=== PATIENT | male | born 1950 | race Caucasian/White ===

== ENCOUNTER → 2019-03-21 08:13 | Outpatient (CLI) | payer MEDICARE, SELFPAY ==
--- NOTE | 2019-03-21 08:34 | CT_ITS ---
PROCEDURE: CT ANGIO CHEST CLINCIAL INDICATION: aneurysm of ascending aorta Ascending aortic aneurysm COMPARISON: No exams were available for comparison TECHNIQUE: IV Contrast: 70ML OPTIRAY 350 Axial images obtained with sagittal and coronal reformats. All CT scans at the facility use one or more dose reduction, viz: automated exposure control, ma/kV adjustment per patient size (including targeted exams where dose is matched to indication, i.e. head), or iterative reconstruction technique. FINDINGS: 1 cm left thyroid nodule posteriorly. There is mild prominence of the ascending aorta measuring up to 4.1 cm in maximum diameter. Coronary artery calcifications are present. No evidence of aortic dissection. Proximal descending thoracic aorta measures approximately 3.7 cm. No evidence of central pulmonary embolus. Normal heart size. No mediastinal or hilar mass or adenopathy. Calcified granuloma is present in the right middle lobe There are diffuse degenerative changes of the thoracic spine with ankylosis of the thoracic spine. Images were also obtained through the abdomen and into the upper pelvis. Atheromatous changes involve the aortoiliac vessels with no evidence of aneurysm or significant stenosis. There is mild thickening of the distal esophagus. IMPRESSION: Mild dilatation of the ascending aorta at 4.1 cm. Previous images are not available for comparison performed at an outside institution but was reported to be stable at 4.2 cm. Dictated by: Sherif Matos MD 03/22/2019 13:26 Electronically signed by Sherif Matos MD in [place] 03/22/2019 13:26
[2019-03-21 08:44] LABS: Anion Gap 12.7 mEq/L (5-15); Blood Urea Nitrogen 31 mg/dL (7-18); Calcium 8.6 mg/dL (8.5-10.1); Carbon Dioxide 26 mmol/L (21.0-32.0); Chloride 104 mmol/L (98-107); Creatinine,Serum 1.67 mg/dL (0.70-1.30); Estimated Glomerular Filt Rate 41 ml/min (>60); GFR (African American) 50 ML/MIN (>60); Glucose 109 mg/dL (74-106); Potassium 4.7 mmoL/L (3.5-5.1); Sodium 138 mmol/L (136-145)
--- NOTE | 2019-03-21 09:23 | CA_ITS ---
APPROVED REPORT EXAM: Comprehensive 2D, Doppler, and color-flow Echocardiogram Health Specialist: Angie Reynolds RDCS Ht: 5 ft 11 in Wt: 235lbs BSA: 2.26 BP: 105/53 mmHg Indications: Shortness of Breath, CAD, Hyperlipidemia, Cardiomyopathy,OBESITY,CHF 2D Dimensions LVOT 2.70 cm (M/F) 1.5-2.5 M-Mode Dimensions RVDd 3.00 cm (0.9-2.6) LA Diam 3.80 cm (1.9-4.0) LVDd 6.20 cm (3.5-5.7) Ao Diam 4.50 cm (2.0-3.7) LVDs 5.00 cm (3.5-5.7) AV Cusp 1.90 cm (1.5-2.6) IVSd 1.00 cm (0.6-1.1) PWd 1.00 cm (0.6-1.1) EF (Teich) 39.20% FS 19.40% EDV (Teich) 194.00 mL ESV (Teich) 118.00 mL LV Diastology E/A Ratio 0.7 MED E' 4.00 (< 7 cm/sec) E'/MED E' Ratio 14.80 (>14) LAT E' 8.43 (<10 cm/sec) E/LAT E' Ratio 7.00 (>14) Mitral Valve MV E Max Jayson. 59.20 (40-130 cm/s) MV A Velocity 82.40 (40-130 cm/s) E/A Ratio 0.70 MV PHT 106.00 ms MVA PHT 2.1 cm2 Left Ventricle Left atrium is mildly enlarged, left ventricle is normal size, mild concentric left ventricular hypertrophy, visually estimated ejection fraction of 50%, there is marked hypokinesis involving the basal septum and inferior basal wall. Grade 1 diastolic dysfunction seen with tissue Doppler evidence of raise left atrial pressure. Right Ventricle Right atrium and right ventricular normal size and contractility. Aortic Valve Aortic valve is thickened and calcified leaflet continue to display good mobility, there is no aortic stenosis aortic insufficiency. Mitral Valve Mitral valve leaflets are minimally thickened, there is mild mitral regurgitation. Tricuspid Valve Tricuspid valve is grossly normal, there is mild tricuspid regurgitation, tricuspid regurgitation jet velocity is inadequate for calculation of the right ventricular systolic pressure. Pulmonic Valve Pulmonic valve is poorly visualized. Great Vessels Aortic root is normal size. Pericardium No significant pericardial effusion noted. Conclusion 1. Technically difficult study because of the patient factors and poor acoustic windows. 2. Mildly enlarged left atrium, normal left ventricular size, mild concentric left ventricular hypertrophy, visually estimated ejection fraction 50% with segmental wall motion abnormality as described above, grade 1 diastolic dysfunction seen without tissue Doppler evidence of raise left atrial pressure. 3. Thickened and calcified aortic valve without aortic stenosis aortic insufficiency. 4. Mildly enlarged right ventricle with normal contractility. 5. Mild mitral and tricuspid regurgitation. 6. No significant pericardial effusion noted. Electronically signed by : Sanket Martins, 03/22/2019 06:33:44
== END ==
PROVIDERS: Visit Provider Urology
DX: I25.118 Atherosclerotic heart disease of native coronary artery with other forms of angina pectoris (principal); I71.2 Thoracic aortic aneurysm, without rupture; I25.5 Ischemic cardiomyopathy
CPT/HCPCS: 36415; 71275; 80048; 93306; Q9967

== ENCOUNTER → 2019-11-15 12:04 | Outpatient (CLI) | payer MEDICARE, SELFPAY ==
--- NOTE | 2019-11-15 12:32 | CT_ITS ---
PROCEDURE: CT ANGIO CHEST CLINCIAL INDICATION: thoracic aortic aneurysm. Follow-up thoracic aortic aneurysm with shortness of air and chest COMPARISON: CT ANGIO CHEST from 03/21/2019 TECHNIQUE: IV Contrast: 70ML OPTIRAY 350 Axial images obtained with sagittal and coronal reformats. All CT scans at the facility use one or more dose reduction, viz: automated exposure control, ma/kV adjustment per patient size (including targeted exams where dose is matched to indication, i.e. head), or iterative reconstruction technique. FINDINGS: HEART AND MEDIASTINAL STRUCTURES: Continued mild prominence of the ascending aorta at 4.1 cm unchanged. No evidence of aortic dissection. Coronary artery calcifications and/or stents noted. Normal heart size. No evidence of central pulmonary embolus. There are scattered mildly prominent mediastinal lymph nodes once again noted not significantly changed LUNGS AND PLEURAL SPACES: No acute finding. 3 mm noncalcified nodule left lower lobe image 44 series 3 unchanged BONY STRUCTURES: Thoracic spondylosis with ankylosis of the thoracic spine UPPER ABDOMEN: Unremarkable. ADDITIONAL FINDINGS: Gynecomastia IMPRESSION: Overall no change in the mild dilatation of the ascending aorta with tortuosity. Other nonacute findings as described above. Dictated by: Sherif Matos MD 11/16/2019 11:48 Electronically signed by Sherif Matos MD in [facility] 11/16/2019 11:48
[2019-11-15 12:34] LABS: Blood Urea Nitrogen 29 mg/dl (9-20); Estimated Glomerular Filt Rate 43 ml/min (>60); GFR (African American) 52 ML/MIN (>60)
== END ==
PROVIDERS: Visit Provider Urology
DX: E78.5 Hyperlipidemia, unspecified (principal); I11.9 Hypertensive heart disease without heart failure; I25.10 Atherosclerotic heart disease of native coronary artery without angina pectoris; I71.2 Thoracic aortic aneurysm, without rupture; R00.1 Bradycardia, unspecified; R06.02 Shortness of breath; R60.9 Edema, unspecified
CPT/HCPCS: 36415; 71275; 82565; 84520; Q9967

== ENCOUNTER → 2020-05-28 13:03 | Outpatient (CLI) | payer MEDICARE, SELFPAY ==
--- NOTE | 2020-05-28 13:27 | CT_ITS ---
PROCEDURE: CT ANGIO CHEST CLINCIAL INDICATION: ASCENDING AORTIC ANEURYSM SOA 100ML ISO 370, 40ML SALINE PT HYDRATING PRIOR ON PACS COMPARISON: CT CT ANGIO CHEST from 11/15/2019 TECHNIQUE: IV Contrast: 70ML Isovue 370 Axial images obtained with sagittal and coronal reformats. All CT scans at the facility use one or more dose reduction, viz: automated exposure control, ma/kV adjustment per patient size (including targeted exams where dose is matched to indication, i.e. head), or iterative reconstruction technique. FINDINGS: HEART AND MEDIASTINAL STRUCTURES: There is mild prominence of the ascending aorta at 4 cm. There is also mild prominence of the proximal descending thoracic aorta at 3.7 cm. Scattered calcific plaque involves the aorta. No evidence of aortic dissection. No evidence of central pulmonary embolus there is also coronary artery calcification consistent with coronary artery disease. No mediastinal or hilar mass or adenopathy. There are few small mediastinal lymph nodes. LUNGS AND PLEURAL SPACES: Calcified granulomas present in the right upper lobe. BONY STRUCTURES: Multilevel thoracic spondylosis is present with degenerative disc disease in thoracic ankylosis. UPPER ABDOMEN: Prior cholecystectomy. ADDITIONAL FINDINGS: No other significant abnormalities. IMPRESSION: Stable CT appearance of the chest. Mild prominence of the ascending aorta overall not significantly changed. No evidence of aortic dissection. Coronary artery disease is noted. Dictated by: Sherif Matos MD 05/29/2020 17:17 Sherif Matos MD in [facility] 05/29/2020 17:17
[2020-05-28 13:35] LABS: Basophils # 0.1 K/mm3 (0-0.2); Basophils % 0.4 % (0.1-2.0); Eosinophils % 0.2 % (0.1-12.0); Hematocrit 43.5 % (42.0-52.0); Hemoglobin 14.2 g/dL (14.1-18.0); Lymphocytes # 2.1 K/mm3 (0.7-4.5); Lymphocytes % 15.3 % (10-50); Mean Corpuscular HGB Conc 32.6 g/dL (31.8-35.4); Mean Corpuscular Volume 95.1 fl (80-94); Mean Platelet Volume 8.1 fl (7.4-10.4); Monocytes # 0.5 K/mm3 (0.1-1.0); Monocytes % 3.7 % (1.7-9.3); Neutrophils # 11.2 K/mm3 (1.8-7.8); Neutrophils % 80.3 % (37.0-80.0); Platelet Count 291 K/mm3 (142-424); Red Blood Count 4.57 M/mm3 (4.60-6.20); Red Cell Distribution Width 14.2 % (11.5-17.5)
[2020-05-28 13:43] LABS: Chloride 99 mmol/L (98-107); Potassium 4.7 mmoL/L (3.5-5.1); Sodium 136 mmol/L (136-145)
[2020-05-28 13:46] LABS: Alanine Aminotransferase 30 U/L (12-78); Albumin Level 4.6 g/dl (3.5-5.0); Alkaline Phosphatase 70 U/L (38-126); Anion Gap 13.7 mEq/L (5-15); Aspartate Amino Transferase 27 U/L (17-59); Bilirubin,Direct 0.1 mg/dl (0.0-0.4); Bilirubin,Indirect 0.4 mg/dL (0.0-0.9); Bilirubin,Total 0.5 mg/dl (0.2-1.3); Bilirubin,Unconjugated 0.4 mg/dL (0.0-1.1); Blood Urea Nitrogen 30 mg/dl (9-20); Calcium 9.9 mg/dl (8.4-10.2); Carbon Dioxide 28 mmol/L (22.0-30.0); Cholesterol 165 mg/dl (140-200); Estimated Glomerular Filt Rate 38 ml/min (>60); GFR (African American) 45 ML/MIN (>60); Glucose 244 mg/dl (74-100); Total Protein,Serum 7.9 g/dl (6.3-8.2); Triglycerides 121 mg/dl (30-150); VLDL Cholesterol 24 mg/dL (0-40)
[2020-05-28 13:47] LABS: Chol/HDL Ratio 3.1 (1-3.5); HDL Cholesterol 53 mg/dl (40-60)
[2020-05-28 14:04] LABS: Direct LDL Cholesterol 76.42 mg/dL (100-129)
== END ==
PROVIDERS: Nurse Practitioner Family; Visit Provider Urology
DX: I25.10 Atherosclerotic heart disease of native coronary artery without angina pectoris; I11.0 Hypertensive heart disease with heart failure; R06.02 Shortness of breath; R60.0 Localized edema; E78.5 Hyperlipidemia, unspecified; E78.2 Mixed hyperlipidemia
CPT/HCPCS: 36415; 71275; 80048; 80061; 80076; 85025; Q9967

== ENCOUNTER → 2020-06-04 12:25 | Outpatient (CLI) | payer MEDICARE, SELFPAY ==
--- NOTE | 2020-06-04 12:26 | CA_ITS ---
APPROVED REPORT EXAM: Comprehensive 2D, Doppler, and color-flow Echocardiogram Plating Engineer: Margie Grier CRT Ht: 5 ft 11 in Wt: 324lbs BSA: 2.59 BP: 138/68 mmHg Indications: Chest Pain, CAD, stents, EF 45% on old echo, poor windows. 2D Dimensions LVOT 2.14 cm (M/F) 1.5-2.5 M-Mode Dimensions RVDd 2.76 cm (0.9-2.6) LA Diam 3.90 cm (1.9-4.0) LVDd 5.08 cm (3.5-5.7) Ao Diam 4.57 cm (2.0-3.7) LVDs 4.17 cm (3.5-5.7) IVSd 1.67 cm (0.6-1.1) PWd 1.44 cm (0.6-1.1) EF (Teich) 37.00% FS 17.90% EDV (Teich) 122.70 mL ESV (Teich) 77.30 mL LV Diastology E Decel Time 150.00 (160-240 msec) E/A Ratio 0.42 MED E' 3.20 (< 7 cm/sec) E'/MED E' Ratio 10.38 (>14) LAT E' 3.20 (<10 cm/sec) E/LAT E' Ratio 10.38 (>14) Aortic Valve AO Peak GR. 9.50 mmHg Mitral Valve MV E Max Jayson. 33.00 (40-130 cm/s) MV A Velocity 79.00 (40-130 cm/s) E/A Ratio 0.42 MV Decel. Time 150.00 (160-240 ms) MV PHT 44.00 ms Pulmonary Valve PV Peak Velocity 76.00 (50-150 cm/s) Tricuspid Valve TR P. Velocity 113.00 cm/s RAP Estimate 10.00 mmHg RVSP 15.10 mmHg Left Ventricle Technically difficult study because of the patient factors and poor acoustic windows. Left atrium is mildly enlarged, left ventricle is normal size, mild concentric left ventricular hypertrophy, visually estimated ejection fraction approximately 45%, there is marked hypokinesis involving the inferior basal wall, endocardial surfaces are poorly visualized, if clinically indicated repeat study with Definity contrast is recommended. Grade 1 diastolic dysfunction seen without tissue Doppler evidence of raise left atrial pressure. Right Ventricle Right atrium and right ventricle are relatively normal size and function. Aortic Valve Aortic valve is minimally thickened and fibrosed, there is no aortic stenosis or aortic insufficiency. Mitral Valve Mitral valve is grossly normal, there is mild mitral regurgitation. Tricuspid Valve Tricuspid valve is grossly normal, there is mild tricuspid regurgitation, tricuspid regurgitation jet velocity is inadequate for calculation of the right ventricular systolic pressure. Pulmonic Valve Pulmonic valve is poorly visualized. Great Vessels Aortic root is normal size. Pericardium No significant pericardial effusion noted. Conclusion 1. Technically difficult study because of the patient factors and poor acoustic windows, if clinically indicated repeat study with Definity contrast is recommended. Normal left ventricular size, mild concentric left ventricular hypertrophy, visually estimated ejection fraction 45% with segmental wall motion abnormality described above, grade 1 diastolic dysfunction seen without tissue Doppler evidence of raise left atrial pressure. 2. Mild mitral and tricuspid regurgitation. 3. No significant pericardial effusion noted. Electronically signed by : Sanket Martins, 06/05/2020 05:46:07
== END ==
PROVIDERS: Visit Provider Urology
DX: E78.2 Mixed hyperlipidemia (principal); I11.0 Hypertensive heart disease with heart failure; I20.9 Angina pectoris, unspecified; R06.02 Shortness of breath; R60.0 Localized edema
CPT/HCPCS: 93306

== ENCOUNTER → 2020-06-12 12:03 | Outpatient (CLI) | payer MEDICARE, SELFPAY ==
[2020-06-12 12:33] LABS: Basophils % 0.4 % (0.1-2.0); Eosinophils # 0.1 K/mm3 (0.0-0.4); Eosinophils % 1.7 % (0.1-12.0); Hematocrit 39.6 % (42.0-52.0); Hemoglobin 13.7 g/dL (14.1-18.0); Lymphocytes # 2.4 K/mm3 (0.7-4.5); Lymphocytes % 38.6 % (10-50); Mean Corpuscular HGB Conc 34.5 g/dL (31.8-35.4); Mean Corpuscular Hemoglobin 31.2 pg (27.0-31.2); Mean Corpuscular Volume 90.5 fl (80-94); Mean Platelet Volume 8.2 fl (7.4-10.4); Monocytes # 0.4 K/mm3 (0.1-1.0); Monocytes % 6.5 % (1.7-9.3); Neutrophils # 3.3 K/mm3 (1.8-7.8); Neutrophils % 52.8 % (37.0-80.0); Platelet Count 184 K/mm3 (142-424); Red Blood Count 4.38 M/mm3 (4.60-6.20); White Blood Count 6.3 K/mm3 (4.8-10.8)
[2020-06-12 12:55] LABS: Chloride 103 mmol/L (98-107); Potassium 3.9 mmoL/L (3.5-5.1); Sodium 139 mmol/L (136-145)
[2020-06-12 12:58] LABS: Anion Gap 11.9 mEq/L (5-15); Blood Urea Nitrogen 18 mg/dl (9-20); Calcium 9.5 mg/dl (8.4-10.2); Carbon Dioxide 28 mmol/L (22.0-30.0); Estimated Glomerular Filt Rate 50 ml/min (>60); GFR (African American) 61 ML/MIN (>60); Glucose 153 mg/dl (74-100)
[2020-06-12 13:09] LABS: Coronavirus 19 IgG Antibody Negative (Negative); Coronavirus 19 IgM Antibody Negative (Negative)
== END ==
PROVIDERS: Visit Provider Internal Medicine
DX: Z01.818 Encounter for other preprocedural examination (principal); Z03.818 Encounter for observation for suspected exposure to other biological agents ruled out; R94.39 Abnormal result of other cardiovascular function study
CPT/HCPCS: 36415; 80048; 85025; 86328

== ENCOUNTER 2020-06-14 08:18 | Day surgery (SDC) | payer MEDICARE, SELFPAY ==
[2020-06-14] VITALS (13 sets, daily range): BP systolic 111–156; BP diastolic 65–85; PULSE 57–83; RESP 16–20; TEMP 36.9; O2SAT 90–98; BMI 45.1
--- NOTE | 2020-06-14 | IR_ITS ---
APPROVED REPORT Patient Location: Outpatient Naturopathic Doctor: MICHAEL Sylvester RT (R) PROCEDURES Left heart catheterization Left ventriculogram Selective coronary angiogram INDICATION Abnormal Myoview, LV dysfunction Informed consent was obtained prior to the procedure. COMPLICATIONS NONE Estimated Blood Loss: LESS THAN 10 ML TECHNIQUE One percent lidocaine used to anesthetize the right anterior aspect of the wrist. The right radial artery was accessed via the Seldinger technique. A 6 [place] sheath was placed in the right radial artery. 2.5 mg of verapamil, 800 mcg of nitroglycerin, 1mg Lidocaine and 5000 U Heparin were given through the arterial sheath. The trap catheter and a 6 [place] [employer] EBU 4 guide catheter were also used to perform left heart catheterization, left ventriculogram and selective coronary angiogram. At the end of the procedure the sheath was removed good hemostasis was achieved using Traclet band, patient was transferred to the postop holding area in stable condition. ANGIOGRAPHIC RESULTS The left main artery Normal The left anterior descending artery Has a stent through the proximal and mid segment which is widely patent free of in-stent restenosis with excellent proximal distal transitioning The circumflex artery Small nondominant normal The right coronary artery Is a large dominant vessel and widely patent. There are stents in the proximal to mid segment which are widely patent free of in-stent restenosis with excellent proximal and distal transitioning The WHEAT ventriculogram reveals Dilated ventricle ejection fraction 40 to 45% The left ventricular end-diastolic pressure 20 mmHg IMPRESSION Widely patent coronary arteries and stents as described above Dilated ventricle with reduced ejection fraction Elevated LVEDP PLAN 1. Medical management Electronically signed by : Seth Abel, 06/14/2020 12:07:25
== END 2020-06-14 13:12 | disposition home or self-care (01) ==
LOC: CATHLAB 08:20
PROVIDERS: PCP Internal Medicine; Visit Provider Internal Medicine
DX: I25.118 Atherosclerotic heart disease of native coronary artery with other forms of angina pectoris (principal); I11.0 Hypertensive heart disease with heart failure; I50.22 Chronic systolic (congestive) heart failure; I25.5 Ischemic cardiomyopathy; I71.2 Thoracic aortic aneurysm, without rupture; E78.5 Hyperlipidemia, unspecified; E11.9 Type 2 diabetes mellitus without complications; Z95.5 Presence of coronary angioplasty implant and graft; Z79.84 Long term (current) use of oral hypoglycemic drugs; Z79.899 Other long term (current) drug therapy; Z79.82 Long term (current) use of aspirin; Z88.8 Allergy status to other drugs, medicaments and biological substances; Z88.5 Allergy status to narcotic agent; Z87.891 Personal history of nicotine dependence
CPT/HCPCS: 93458; 99152; C1725; C1760; C1769; J1644; Q9967

== ENCOUNTER → 2020-11-06 07:43 | Outpatient (CLI) | payer MEDICARE, SELFPAY ==
[2020-11-06 08:04] LABS: Blood Urea Nitrogen 15 mg/dl (9-20); Estimated Glomerular Filt Rate 55 ml/min (>60); GFR (African American) 66 ML/MIN (>60)
--- NOTE | 2020-11-06 08:10 | CT_ITS ---
PROCEDURE INFORMATION: Exam: CTA Chest With Contrast Exam date and time: 11/06/2020 8:10 AM Age: 70 years old Clinical indication: Cardiovascular condition or disease; Aortic aneurysm; Without rupture; Prior surgery; Surgery date: 6+ months; Surgery type: Heart stents; Additional info: Aortic aneurysm, f/u TECHNIQUE: Imaging protocol: Computed tomographic angiography of the chest with contrast. 3D rendering (Not supervised by radiologist): MIP and/or 3D reconstructed images were created by the technologist. Radiation optimization: All CT scans at this facility use at least one of these dose optimization techniques: automated exposure control; mA and/or kV adjustment per patient size (includes targeted exams where dose is matched to clinical indication); or iterative reconstruction. Contrast material: ISOVUE; Contrast volume: 100 ml; Contrast route: INTRAVENOUS (IV); COMPARISON: CT ANGIO CHEST 05/28/2020 2:26 PM FINDINGS: Pulmonary arteries: There is no convincing evidence of a pulmonary embolus. Aorta: There is no aortic aneurysm or dissection. Lungs: Mild dependent atelectasis. No lobar consolidation. The central airway is grossly clear. Pleural spaces: Unremarkable. No pneumothorax. No pleural effusion. Heart: Mild multichamber cardiomegaly with atherosclerotic calcifications in the coronary arteries. Lymph nodes: No pathologic lymphadenopathy identified. Liver: Hepatic steatosis. Gallbladder and bile ducts: Status post cholecystectomy. Stomach and bowel: Diverticulosis but no diverticulitis within the field of view. Bones/joints: There is spondylosis of the thoracic spine. Soft tissues: Unremarkable. IMPRESSION: 1. No definite pulmonary embolus. 2. Mild cardiomegaly. 3. Hepatic steatosis. 4. Diverticulosis. 5. Status post cholecystectomy.
== END ==
PROVIDERS: PCP Family Medicine; Visit Provider Urology
DX: E11.9 Type 2 diabetes mellitus without complications (principal); G47.33 Obstructive sleep apnea (adult) (pediatric); I11.9 Hypertensive heart disease without heart failure; I25.10 Atherosclerotic heart disease of native coronary artery without angina pectoris; I42.9 Cardiomyopathy, unspecified; I71.2 Thoracic aortic aneurysm, without rupture; R06.02 Shortness of breath; R94.30 Abnormal result of cardiovascular function study, unspecified; Z79.84 Long term (current) use of oral hypoglycemic drugs
CPT/HCPCS: 36415; 71275; 82565; 84520; Q9967

== ENCOUNTER → 2022-10-07 10:19 | Outpatient (CLI) | payer OTHER, SELFPAY ==
[2022-10-07 11:19] LABS: Blood Urea Nitrogen 15 mg/dl (9-20); Estimated Glomerular Filt Rate 66 ml/min (>60); GFR (African American) 80 ML/MIN (>60)
== END ==
PROVIDERS: PCP Nurse Practitioner Family; Visit Provider Nurse Practitioner
DX: R06.02 Shortness of breath (principal); R07.89 Other chest pain
CPT/HCPCS: 36415; 82565; 84520